=== PATIENT | female | born 1985 | race Caucasian/White ===

== ENCOUNTER 2021-06-03 09:16 | Inpatient (IN) ==
[2021-06-03] MEDS ORDERED: LACTATED RINGER'S 1,000 ML IV PRN ×2 (09:49→12:13)
--- NOTE | 2021-06-03 09:53 | History & Physical Report ---
Date of Service June 03, 2021 Assessment & Plan (1) Supervision of normal first : Plan: Sterile speculum exam was performed there is no pooling of fluid nitrazine is negative ferning is negative AmniSure is negative I attempted to examine the patient cervix but she could not tolerate the cervix is fairly posterior It does appear as though the patient is raghu although I cannot determine if she is actively laboring at the also not picking up contractions on the monitor. Certainly on the chance that is really labor we will observe her carefully at this time group B strep swab is sent Covid swab will be sent as well patient will need antibiotics as we will have the GBS back in time if she is an active labor Note after several hours the patient's pain and discomfort increase she was assessed by nursing at that stage she was an anterior lip see delivery note for the rest of the process we did order penicillin however she did not receive any by the time she delivered rapidly History of Present Illness Primary Care Provider: [facility] 36 and 5 called the on-call physician with leakage of fluid and contractions she describes her pain is coming intermittently and getting stronger and she describes leakage of fluid but no huge gush the leakage is ongoing. Patient's has been uncomplicated this is her first baby Allergies Allergy/AdvReac Type Severity Reaction Status Date / Time No Known Drug Allergies Allergy Unknown Verified 05/20/21 15:57 shellfish derived Allergy Anaphylaxis Verified 05/20/21 15:57 Home Medications Medication Instructions Recorded Confirmed Type prenat.vits,cedric,ljx-qelf-sfngt 1 tab PO DAILY 11/08/20 05/20/21 History acetaminophen [Tylenol] PO 01/10/21 05/20/21 History ondansetron HCl 4 mg tablet 4 mg PO Q8H PRN #10 tab 04/08/21 05/20/21 Rx (Zofran) Breast Pump #1 ea 05/05/21 05/20/21 Rx Patient History Medical History Headache History of chicken pox Migraine headache with aura Vision loss, right eye Surgical History H/O wisdom tooth extraction Family History Grandmother Breast cancer Father Hypertension Hypercholesterolemia Grandmother Lupus erythematosus Rheumatoid arthritis Grandfather Rheumatoid arthritis Mother Thyroid disease Denies family history of Ovarian cancer Colorectal cancer Social History Smoking Status: Former smoker Hx Alcohol Use: No Hx Substance Use: No Preferred Language: Pashto 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 Beliefs That Will Affect Care: None marital status: marital status details: Rober Esqueda (33) [phone] Current Living Situation: Spouse Current Living Situation Comment: lives with spouse, dog, cat-spouse changing litter current occupational status: employed 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
[2021-06-03] MEDS ORDERED: OXYTOCIN 30 UNITS/500 ML BAG IV PRN ×2 (12:13→14:04)
[2021-06-03] MEDS ORDERED: PENICILLIN G POTASSIUM 6 MU in DEXTROSE 5% 250 ML IV ONE (12:30)
[2021-06-03 12:34] LABS: Hematocrit (blood only) 37.1 % (37-47); Hemoglobin 13.2 g/dL (12.0-16.0); Mean Corpuscular Hemoglobin 31.7 pg (25-34); Mean Corpuscular Hgb Conc 35.6 g/dL (32-36); Mean Platelet Volume 10.3 fL (7.4-10.4); Platelet Count 229 K/uL (130-400); RDW Standard Deviation 42.2 fL (36.4-46.3); Red Blood Count 4.17 M/uL (4.2-5.4); White Blood Count 19.38 K/uL (4.8-10.8)
[2021-06-03] MEDS ORDERED: LIDOCAINE 1% LOCAL 20 ML VIAL ONE (12:54)
--- NOTE | 2021-06-03 13:29 | Delivery Summary ---
Vaginal Delivery Summary Date of Service June 03, 2021 Vaginal Delivery Summary Spontaneous vaginal delivery the patient arrived in labor and delivery and initially we had thought she was ruptured membranes but she was negative for all testing she was feeling pain but we could not roller picker contractions on the monitor and an initial attempt at cervix check was unable to determine cervical dilation as she would not tolerate the exam. Several hours later though she felt increased discomfort at that time it was found she was an anterior lip I did offer her epidural penicillin was ordered. Patient declined epidural and then pushed anterior occiput baby without difficulty. Suction of the nares and mouth born first clear fluid I had gently attempted to rupture membranes when the baby was 9 cm with a hook and no fluid was obtained. Once the baby's head was born mouth and then nares were suctioned there was no nuchal cord gentle traction on the baby no excessive force. Live vigorous male infant cord clamped and cut cord gases obtained cord blood obtained placenta removed with gentle traction IV Pitocin started patient had a second-degree tear we injected this with local anesthetic and repaired in the usual fashion at the end of the procedure sponge and instrument counts were correct estimated blood loss 250 mL
[2021-06-03 13:36] LABS: Base Excess Cord Arterial Bld -6.1 mEq/L (-9-1.8); CO2 Cord Arterial Blood 49 mmHg (39.1-73.5); HCO3 Cord Arterial Blood 21 mmol/L (19.7-28.5); PO2 Cord Arterial Blood 20 mmHg (4.1-31.7)
[2021-06-03 13:41] LABS: Base Excess Cord Venous Blood -6.4 mEq/L (-7.7-1.9); Cord Venous Blood HCO3 21 mmol/L (18.4-26.8); Cord Venous Blood PCO2 48 mmHg (30.4-57.2); Cord Venous Blood PO2 20 mmHg (14.1-43.3)
[2021-06-03 13:42] LABS: Cord Venous Blood pH 7.25 (7.20-7.44); O2 Saturation Cord Venous Bld < 60.0 % (<68); Oxygen Sat Cord Arterial Blood < 60.0 % (<60); pH Cord Arterial Blood 7.26 (7.1-7.38)
[2021-06-03] MEDS ORDERED: oxyCODONE/ACETAMINOPHEN 5mg/325mg TAB PO PRN (14:04)
[2021-06-03] MEDS ORDERED: ACETAMINOPHEN 325 MG TAB PO PRN (14:04)
[2021-06-03] MEDS ORDERED: bisacodyL 10 MG SUPP PR PRN (14:04)
[2021-06-03] MEDS ORDERED: BENZOCAINE 20% AER SPR 82.5 GM CAN EXT PRN (14:04)
[2021-06-03] MEDS ORDERED: HYDROCORTISONE ACETATE 25 MG SUPP PR PRN (14:04)
[2021-06-03] MEDS ORDERED: DIPHTHERIA/TETANUS/PERTUSSIS 0.5 ML SYR/VIAL IM ONE (14:04)
[2021-06-03] MEDS: IBUPROFEN 600 MG TAB PO PRN ×2 (14:28→20:16)
[2021-06-03] MEDS ORDERED: PENICILLIN G POTASSIUM 3 MU in DEXTROSE 5% 100 ML IV PRN (15:13)
[2021-06-03] MEDS: DOCUSATE SODIUM 100 MG CAP PO SCH (20:16)
[2021-06-04] MEDS: IBUPROFEN 600 MG TAB PO PRN ×4 (00:07→23:37)
[2021-06-04 07:16] LABS: Hematocrit (blood only) 29.8 % (37-47); Mean Corpuscular Hemoglobin 31.1 pg (25-34); Mean Corpuscular Hgb Conc 33.6 g/dL (32-36); Mean Corpuscular Volume 92.5 fL (80-100); Mean Platelet Volume 9.8 fL (7.4-10.4); Platelet Count 192 K/uL (130-400); RDW Coefficient of Variation 13.3 % (11.5-14.5); RDW Standard Deviation 45.3 fL (36.4-46.3); Red Blood Count 3.22 M/uL (4.2-5.4); White Blood Count 13.48 K/uL (4.8-10.8)
--- NOTE | 2021-06-04 08:59 | Obstetrical Progress Note ---
Date of Service June 04, 2021 Assessment & Plan (1) Encounter for care and examination after delivery: Plan: 35yo PPD 1 s/p at 36weeks 5days complicated with 2nd degree tear -Continue routine care -Vitals reviewed- HDS, afebrile -GBS unknown, tx briefly with penicillin prior to delivery; limited by time of delivery -Encourage ambulation, regular diet -Pain control with ibuprofen, acetaminophen PRN -Encourage -Hgb 10, stable -f/u in 6 weeks with OB after discharge; dc likely tomorrow given 1st baby Admission and Anticipated Discharge Date Admission Date: June 03, 2021 Supervising Physician Co-Signing Physician Notes Patient seen and evaluated and agree with the above findings and plan. Routine care Subjective Ambulation: yes Voiding: yes Passing Gas: yes BM: not yet Diet Tolerance: regular w/o N/V Lochia: moderate Feeding Type: breast Current Pain Level(1-10): 1 Review of Systems Review of Systems: Denies fevers/chills. Denies dyspnea, cough. Denies chest pain. +mild breast soreness Denies dysuria. Denies headache. Denies back pain. Physical Exam Physical Exam: General: Alert, oriented, no acute distress Cardiac: Regular rate and rhythm, normal S1, S2. No murmurs appreciated. Respiratory: Clear to auscultation b/l with good air flow entry, symmetric chest rise and fall. No wheezes or crackles. No increased work of breathing or accessory muscle use Abdomen: Soft, nontender, nondistended. Fundus firm and palpable at umbilicus. No guarding or rebound. Skin: No rashes or lesions Extremities: Warm, dry, well-perfused. No lower extremity edema, erythema or swelling. No calf tenderness. Results & Data ([facility]) Vital Signs (Past 12 Hours) Vital Signs Temp Pulse Resp BP 06/04/21 03:50 36.6 C 68 18 102/66 06/03/21 23:50 36.4 C L 71 18 111/69 Resident Activity Tracking Resident Involvement: Resident Care Provided Care Provided: OB Delivery
[2021-06-04] MEDS: DOCUSATE SODIUM 100 MG CAP PO SCH ×2 (10:14→20:11)
[2021-06-04] MEDS: PRENATAL VITAMIN 1 TAB PO SCH (10:14)
[2021-06-04] MEDS ORDERED: bisacodyL 5 MG TABEC PO SCH (20:00)
[2021-06-05] MEDS: IBUPROFEN 600 MG TAB PO PRN ×2 (04:06→08:02)
[2021-06-05 06:27] LABS: Hematocrit (blood only) 27.4 % (37-47); Hemoglobin 9.3 g/dL (12.0-16.0)
--- NOTE | 2021-06-05 07:36 | Obstetrical Progress Note ---
Date of Service June 05, 2021 Assessment & Plan (1) Encounter for care and examination after delivery: no ext pain. Likely plan d/c later today Subjective Ambulation: ambulating normally Voiding: no voiding problems Diet Tolerance:: regular diet Lochia:: Moderate Feeding Type:: breast feeding Current Pain Level(1-10): 1 Results & Data ([facility]) Vital Signs (Past 12 Hours) Vital Signs Temp Pulse Resp BP 06/05/21 00:35 98.1 F 69 18 106/68
[2021-06-05] MEDS: DOCUSATE SODIUM 100 MG CAP PO SCH (08:02)
[2021-06-05] MEDS: PRENATAL VITAMIN 1 TAB PO SCH (08:02)
== END 2021-06-05 17:10 | disposition home or self-care (01) | DRG 807 ==
LOC: OPB 09:16 → 4S1 09:17 → 4S2 17:15

== ENCOUNTER 2021-06-22 04:40 | Observation (INO) ==
--- NOTE | 2021-06-22 04:57 | Emergency Department Note ---
History of Present Illness General Chief complaint: Vaginal Bleeding Stated complaint: POSTPARDUM BLEEDING AND BLOOD CLOTS; DIZZINESS Time Seen by Provider: 06/22/21 04:51 History of Present Illness Maximum Pain Intensity: 2 35-year-old female presents emergency department with vaginal bleeding post spontaneous vaginal delivery on June 03. Patient was seen by me approximately 5 hours prior to presentation at the time she had passed 2 clots, after discussion with the CANDY COOK[employer] HELPER Dr. Wilcox it was decided that we would try Methergine as she was stable. Patient was given a dose of Methergine she returns now stating increased blood clots and lightheaded dizziness and feeling weak. Patient denies specific abdominal pain does state some abdominal cramping however but states that she is passing a large amount of clots in comparison to prior presentation Home Medications Medication Instructions Recorded Confirmed Type Breast Pump #1 ea 05/05/21 06/20/21 Rx prenat.vits,cedric,yna-xgis-lyfvp 1 tab PO DAILY 06/03/21 06/21/21 History acetaminophen 500 mg tablet 1,000 mg PO DIRECTED PRN 06/21/21 06/21/21 H istory (Tylenol Extra Strength) methylergonovine 0.2 mg tablet 0.2 mg PO QID 2 Days #8 tab 06/21/21 Rx (Methergine) Allergies Allergy/AdvReac Type Severity Reaction Status Date / Time shellfish derived Allergy Severe Anaphylaxis Verified 06/21/21 23:36 Past Med/Surg History Medical History Headache History of chicken pox Migraine headache with aura Vision loss, right eye Surgical History H/O wisdom tooth extraction Family History Grandmother Breast cancer Father Hypertension Hypercholesterolemia Grandmother Lupus erythematosus Rheumatoid arthritis Grandfather Rheumatoid arthritis Mother Thyroid disease Denies family history of Ovarian cancer Colorectal cancer Social History Smoking Status: Never smoker Hx Alcohol Use: No Hx Substance Use: No Preferred Language: Tamazight 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 Beliefs That Will Affect Care: None marital status: marital status details: Rober Esqueda (33) [phone] Current Living Situation: Spouse Current Living Situation Comment: lives with spouse, dog, cat-spouse changing litter current occupational status: employed 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 Feels Safe at Home: Yes Assistive Devices: Glasses Review of Systems A total of 10 systems reviewed and were otherwise negative Gastrointestinal: no vomiting Genitourinary (Female): + abnormal vaginal bleeding Physical Exam Vital Signs Vital Signs - 24 hr 06/22/21 04:42 06/22/21 05:00 06/22/21 05:07 Temperature 36.5 C Temperature Source Temporal Artery Scan Pulse Rate 92 H 82 100 H Pulse Rate from SpO2 Sensor 83 99 H Respiratory Rate 18 18 12 Blood Pressure 101/67 111/59 L Blood Pressure Mean 78 76 Pulse Oximetry 94 99 100 Sepsis Recent Fever Within 48 Hours No Sepsis New/Unexplained Change in Mental Status No Sepsis Action Taken by Nursing No Action Required 06/22/21 05:10 06/22/21 05:15 06/22/21 05:20 Temperature Temperature Source Pulse Rate 87 94 H 89 Pulse Rate from SpO2 Sensor 85 Respiratory Rate 10 L 20 17 Blood Pressure 100/63 Blood Pressure Mean 75 Pulse Oximetry 100 Sepsis Recent Fever Within 48 Hours Sepsis New/Unexplained Change in Mental Status Sepsis Action Taken by Nursing 06/22/21 05:30 06/22/21 05:40 06/22/21 05:50 Temperature Temperature Source Pulse Rate 97 H 89 89 Pulse Rate from SpO2 Sensor 91 H Respiratory Rate 15 14 14 Blood Pressure 104/59 L Blood Pressure Mean 74 Pulse Oximetry 98 Sepsis Recent Fever Within 48 Hours Sepsis New/Unexplained Change in Mental Status Sepsis Action Taken by Nursing 06/22/21 06:00 Temperature Temperature Source Pulse Rate 92 H Pulse Rate from SpO2 Sensor 90 Respiratory Rate 13 Blood Pressure 104/68 Blood Pressure Mean 80 Pulse Oximetry 99 Sepsis Recent Fever Within 48 Hours Sepsis New/Unexplained Change in Mental Status Sepsis Action Taken by Nursing VITAL SIGNS - Vital signs and nursing notes were reviewed. GENERAL -35-year-old female appears pale. Communicates well with provider and answers questions appropriately. SKIN - Without rashes. HEAD - NC/AT. EYES - PERRL with EOMI bilaterally. Sclera anicteric. Palpebral conjunctiva pink and moist with no injection noted. EARS - No deformities of external structures noted on gross examination bilaterally. No pain elicited with palpation of the tragus bilaterally. External auditory canals without discharge or otorrhea. Tympanic membranes pearly burns without retraction or bulging. No fluid or purulent material visualized behind the TM. Handle of malleus, umbo, cone of light, pars tensa/flaccid all easily visualized. NOSE - Midline and without cyanosis. No epistaxis or purulent drainage noted. Septum midline without deviation or septal hematoma noted. MOUTH/OROPHARYNX - Without perioral cyanosis. NECK - Neck with FROM. Supple to palpation. LUNGS - Chest wall symmetric without accessory muscle use, intercostals retractions, or central cyanosis. Normal vesicular breath sounds CTA B/L. No wheezes, rales, or rhonchi appreciated. CARDIAC - RRR with S1/S2. No murmur, rubs, or gallops appreciated. ABDOMEN - Abdominal contour soft without pulsations or visible masses. BS normoactive all four quadrants. No tenderness, palpable masses, h epatosplenomegaly, or ascites noted. vaginal exam with carton maker present the vaginal vault is full of clot;I have evacuated as much clot as possible with Yankauer suction as well as Q-tips and the patient continues to have clot coming from the cervical os which appears now on digital exam to be open. EXTREMITIES - No clubbing or peripheral cyanosis. No pretibial edema present. . +5/5 strength noted in UE/LE bilaterally. NEUROLOGIC - Cranial nerves II through XII grossly intact. PSYCH - A&Ox3 and cooperates fully with examiner. Pt is very pleasant and interacts well with examiner. Course Reevaluation(s) Reevaluation #1: started on ivf; sister superior at bedside at 515am; bp >100 hr 90; plan to go to OR Consultations Consultation #1: Spoke with Dr Martinez- litzy eval patient at bedside for possible D+C at 510am Administered Medications Doxycycline Hyclate 200 mg/ (Dextrose) 120 mls @ 50 mls/hr IV NOW STA Stop: 06/22/21 07:51 Last Admin: 06/22/21 05:48 Dose: 50 mls/hr Documented by: [id number] Discontinued Medications Sodium Chloride (Nss 1000ml) 1,000 mls @ 999 mls/hr IV .Q1H1M OLGA Stop: 06/22/21 06:00 Last Infusion: 06/22/21 05:54 Dose: 0 mls/hr Documented by: [id number] Admin: 06/22/21 05:19 Dose: 999 mls/hr Documented by: [id number] Medical Decision Making Medical Records Attestation: I reviewed the patient's medical records. Laboratory Data Attestation: I reviewed the patient's lab results. Result diagrams: 06/22/21 05:00 06/22/21 05:00 Lab Results 06/22/21 06/22/21 06/22/21 Range/Units 05:00 05:00 05:07 WBC 7.49 (4.8-10.8) K/uL RBC 2.74 L (4.2-5.4) M/uL Hgb 8.5 L (12.0-16.0) g/dL Hct 24.9 L (37-47) % MCV 90.9 (80-100) fL MCH 31.0 (25-34) pg MCHC 34.1 (32-36) g/dL RDW Std Deviation 42.3 (36.4-46.3) fL RDW Coeff of Anthony 12.8 (11.5-14.5) % Plt Count 304 (130-400) K/uL MPV 8.6 (7.4-10.4) fL Immature Gran % (Auto) 0.3 % Neut % (Auto) 69.9 % Lymph % (Auto) 22.6 % Mccreary % (Auto) 5.9 % Eos % (Auto) 1.2 % Baso % (Auto) 0.1 % Neut # (Auto) 5.24 (1.4-6.5) K/uL Lymph # (Auto) 1.69 (1.2-3.4) K/uL Mccreary # (Auto) 0.44 (0.11-0.59) K/uL Eos # (Auto) 0.09 (0-0.5) K/uL Baso # (Auto) 0.01 (0-0.2) K/uL Immature Gran # (Auto) 0.02 (0.00-0.02) K/uL Sodium 132 L (136-145) mmol/L Potassium 3.6 (3.5-5.1) mmol/L Chloride 100 (98-107) mmol/L Carbon Dioxide 25 (21-32) mmol/L Anion Gap 7 (3-11) BUN 8 (6-23) mg/dl Creatinine 0.48 L (0.6-1.2) mg/dl Est Cr Clr Drug Dosing Not Reportable Est GFR ( Amer) 148.3 ml/min Est GFR (Non-Af Amer) 128.0 ml/min BUN/Creatinine Ratio 16.7 (10-20) Glucose 108 H (70-99(Fasting)) mg/dl Calcium 8.9 (8.5-10.1) mg/dl Total Bilirubin 0.2 (0.2-1.0) mg/dl AST 16 (13-39) U/L ALT 24 (7-52) U/L Alkaline Phosphatase 54 (34-104) U/L Total Protein 6.2 (6.0-8.3) gm/dl Albumin 3.4 (3.4-5.0) gm/dl Globulin 2.8 (2.5-4.0) gm/dl Albumin/Globulin Ratio 1.2 (0.9-2) Blood Type A Positive Antibody Screen NEGATIVE MDM Narrative Decision making differential diagnosis dysfunctional uterine bleeding, retained products of conception, uterine atony Impression & Plan Vaginal bleeding Discharge Plan Visit Data Chief Complaint: Vaginal Bleeding Stated Complaint: POSTPARDUM BLEEDING AND BLOOD CLOTS; DIZZINESS ED Provider: Jorge Arroyo Discharge Problem: Vaginal bleeding Patient Disposition: Being Evaluated by Surgeon Forms Stand Alone Forms: [employer] Prescriptions Prescriptions: No Action (DME) Breast Pump See Rx Instructions .ROUTE .MEDSUPPLY Qty: 1 RF: 0 prenat.vits,cedric,wtu-wnjq-qkpyt Tablet 1 tab PO DAILY RF: 0 acetaminophen [Tylenol Extra Strength] 500 mg Tablet 1,000 mg PO DIRECTED PRN (Reason: Pain) RF: 0 methylergonovine [Methergine] 0.2 mg tablet 0.2 mg PO QID 2 Days Qty: 8 RF: 0 Referrals [facility]: [facility] [Primary Care Provider] -
[2021-06-22] MEDS ORDERED: SODIUM CHLORIDE 0.9% 1000ML 1,000 ML IV SCH (05:00)
[2021-06-22 05:10] LABS: Basophils # (auto) 0.01 K/uL (0-0.2); Basophils % (auto) 0.1 %; Eosinophils # (auto) 0.09 K/uL (0-0.5); Eosinophils % (auto) 1.2 %; Hematocrit (blood only) 24.9 % (37-47); Hemoglobin 8.5 g/dL (12.0-16.0); Immature Granulocytes # (auto) 0.02 K/uL (0.00-0.02); Immature Granulocytes % (auto) 0.3 %; Lymphocytes # (auto) 1.69 K/uL (1.2-3.4); Lymphocytes % (auto) 22.6 %; Mean Corpuscular Hgb Conc 34.1 g/dL (32-36); Mean Corpuscular Volume 90.9 fL (80-100); Mean Platelet Volume 8.6 fL (7.4-10.4); Monocytes # (auto) 0.44 K/uL (0.11-0.59); Monocytes % (auto) 5.9 %; Neutrophils # (auto) 5.24 K/uL (1.4-6.5); Neutrophils % (auto) 69.9 %; Platelet Count 304 K/uL (130-400); RDW Coefficient of Variation 12.8 % (11.5-14.5); RDW Standard Deviation 42.3 fL (36.4-46.3); Red Blood Count 2.74 M/uL (4.2-5.4); White Blood Count 7.49 K/uL (4.8-10.8)
[2021-06-22] MEDS ORDERED: DOXYCYCLINE HYCLATE 200 MG in DEXTROSE 5% 100 ML IV STA (05:28)
[2021-06-22 05:34] LABS: Alanine Aminotransferase 24 U/L (7-52); Albumin Globulin Ratio 1.2 (0.9-2); Albumin Level 3.4 gm/dl (3.4-5.0); Alkaline Phosphatase 54 U/L (34-104); Anion Gap 7 (3-11); Aspartate Aminotransferase 16 U/L (13-39); BUN Creatinine Ratio 16.7 (10-20); Bilirubin,Total 0.2 mg/dl (0.2-1.0); Blood Urea Nitrogen 8 mg/dl (6-23); Calcium 8.9 mg/dl (8.5-10.1); Carbon Dioxide 25 mmol/L (21-32); Chloride 100 mmol/L (98-107); Est GFR (African American) 148.3 ml/min; Globulin 2.8 gm/dl (2.5-4.0); Glucose 108 mg/dl (70-99(Fasting)); Potassium 3.6 mmol/L (3.5-5.1); Sodium 132 mmol/L (136-145); Total Protein 6.2 gm/dl (6.0-8.3)
--- NOTE | 2021-06-22 05:48 | History & Physical Report ---
Date of Service June 22, 2021 Assessment & Plan (1) Delayed hemorrhage: Plan: Jennifer Douglas is a 35-year-old approximately 2.5 weeks status post a normal spontaneous vaginal delivery that was uncomplicated. Patient has increased bleeding as noted per HPI. Bleeding is noted be significant in the emergency department today with a moderate decrease in H/H since discharge. I discussed in light of the persistence of the bleeding recommended that we proceed with a dilation evacuation of the uterus. Patient does not have any symptoms of endometritis. Bleeding is likely due to retained products versus sub involution of the placental site. Discussed a dilation evacuation of the uterus. Risks of the procedure were specifically discussed. Questions answered patient's satisfaction. Consents reviewed and signed patient's medical history was reviewed as part of preoperative visit. Type and screen and COVID test pending (2) Retained products of conception: (3) Preoperative exam for gynecologic surgery: History of Present Illness Primary Care Provider: [facility] Luis is a 35-year-old is approximately 2 and half weeks status post a normal spontaneous vaginal delivery which was noted to be uncomplicated. Patient noted over the past several days she has had increased bleeding with passage of clots. Patient reports that overnight bleeding had progressively increased. She reports increasing size of clot passage with varying degrees of bleeding between passage of clots. Patient reports that she passed a fist-sized clot which brought her back to the emergency department. In addition she reports occasional lightheadedness/dizziness. Denies any distinct shortness of breath. Evaluation by the emergency department physician noted significant clots with persistent bleeding from the cervix. H&H was noted at 8.5/24.9. type and screen and COVID test pending. Allergies Allergy/AdvReac Type Severity Reaction Status Date / Time shellfish derived Allergy Severe Anaphylaxis Verified 06/21/21 23:36 Home Medications Medication Instructions Recorded Confirmed Type Breast Pump #1 ea 05/05/21 06/20/21 Rx prenat.vits,cedric,vfa-wcqw-aghkq 1 tab PO DAILY 06/03/21 06/21/21 History acetaminophen 500 mg tablet 1,000 mg PO DIRECTED PRN 06/21/21 06/21/21 History (Tylenol Extra Strength) methylergonovine 0.2 mg tablet 0.2 mg PO QID 2 Days #8 tab 06/21/21 Rx (Methergine) Patient History Medical History Headache History of chicken pox Migraine headache with aura Vision loss, right eye Surgical History H/O wisdom tooth extraction Family History Grandmother Breast cancer Father Hypertension Hypercholesterolemia Grandmother Lupus erythematosus Rheumatoid arthritis Grandfather Rheumatoid arthritis Mother Thyroid disease Denies family history of Ovarian cancer Colorectal cancer Social History Smoking Status: Never smoker Hx Alcohol Use: No Hx Substance Use: No Preferred Language: Lebanese 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 Beliefs That Will Affect Care: None marital status: marital status details: Rober Esqueda (33) [phone] Current Living Situation: Spouse Current Living Situation Comment: lives with spouse, dog, cat-spouse changing litter current occupational status: employed 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 Feels Safe at Home: Yes Assistive Devices: Glasses Physical Exam Physical Exam: portions of exam per ED physician Constitutional: WD/WN, vitals as above well developed, well nourished and + well hydrated; no acute distress Neck: trachea midline, no thyromegaly Respiratory: normal respiratory effort, lungs clear to auscultation no respiratory distress, no labored breathing and no cough Cardiovascular: RRR, no murmur, no edema Heart Sounds: normal S1 and normal S2 Gastrointestinal (Abdomen): normal bowel sounds, soft, nontender, no hepatosplenomegaly Inspection/Auscultation: abdomen not distended and no abdominal edema Neurologic: PERRL, EOMI, accommodation nl, no face palsy, no dysarthria normal touch/pain/proprioception Psychiatric: A+Ox3, euthymic affect Apperance: appropriately dressed and appropriately groomed Genitourinary: no vaginal lesions, no adnexal mass normal external appearance and normal appearance of the urethra; no external lesions, no external swelling, no external erythema and no external laceration Speculum/Bimanual Exam: + vaginal bleeding ( Significant); uterus nontender passage of large clots with continued bleeding noted on speculum exam by ED physician Lymphatic: no cervical or axillary lymphadenopathy Results & Data ([facility]) Vital Signs (Past 12 Hours) Vital Signs Temp Pulse Resp BP Pulse Ox 06/22/21 05:30 97 H 15 104/59 L 06/22/21 05:20 89 17 06/22/21 05:15 94 H 20 100/63 06/22/21 05:10 87 10 L 100 06/22/21 05:07 100 H 12 111/59 L 100 06/22/21 05:00 82 18 99 06/22/21 04:42 36.5 C 92 H 18 101/67 94 Coding Level of Care Code 37979 Office/Outpt Visit, Est Diagnoses Delayed hemorrhage O72.2 Retained products of conception Preoperative exam for gynecologic surgery Z01.818
[2021-06-22] MEDS ORDERED: MIDAZOLAM HCL 1 MG/ML 2ML VIAL ONE (08:07)
[2021-06-22] MEDS ORDERED: fentaNYL citrate 100 MCG/2 ML VIAL ONE (08:08)
[2021-06-22] MEDS ORDERED: PROPOFOL IV EMULSION 10 MG/ML 20 ML VIAL IV ONE (08:13)
[2021-06-22] MEDS ORDERED: LIDOCAINE 2% 2 ML VIAL/AMP(20MG/ML) INFIL ONE (08:13)
[2021-06-22] MEDS ORDERED: DEXAMETHASONE SOD INJ 4 MG/ML VIAL ONE (08:13)
[2021-06-22] MEDS ORDERED: ONDANSETRON INJ 2 MG/ML 2 ML VIAL ONE (08:13)
--- NOTE | 2021-06-22 08:19 | Anesthesiology Consultation ---
Date of Service June 22, 2021 Assessment & Plan (1) Encounter for pre-operative examination: Chart Review Chart Review: Acceptable Risk for Surgery and Patient NOT seen in Pre Admission Testing Consults Requested none History Surgery Operation Date: 06/22/21 07:15 Proposed Procedures p Dilation and Evacuation - Angel Martinez MD Allergies Allergy/AdvReac Type Severity Reaction Status Date / Time shellfish derived Allergy Severe Anaphylaxis Verified 06/21/21 23:36 Medications Home Medications Medication Instructions Recorded Confirmed Last Taken Breast Pump #1 ea 05/05/21 06/22/21 Unknown prenat.vits,cedric,taf-ufkj-ytnuw 1 tab PO DAILY 06/03/21 06/22/21 06/21/21 acetaminophen 500 mg tablet 1,000 mg PO DIRECTED PRN 06/21/21 06/22/21 Unknown (Tylenol Extra Strength) methylergonovine 0.2 mg tablet 0.2 mg PO QID 2 Days #8 tab 06/21/21 06/22/21 06/21/21 00:00 (Methergine) NPO Date Last Intake of Fluids: 06/22/21 Time Last Intake of Fluids: 03:00 Last Intake of Fluids Comment: water Date Last Intake of Solids: 06/21/21 Time Last Intake of Solids: 20:00 Past Medical History Medical History Headache History of chicken pox Migraine headache with aura Vision loss, right eye Past Family History Family History Grandmother Breast cancer Father Hypertension Hypercholesterolemia Grandmother Lupus erythematosus Rheumatoid arthritis Grandfather Rheumatoid arthritis Mother Thyroid disease Denies family history of Ovarian cancer Colorectal cancer Past Surgical History Surgical History H/O wisdom tooth extraction Social History Smoking Status: Never smoker Hx Alcohol Use: No Hx Substance Use: No substance use type: does not use Physical Exam Vital Signs Last Vital Signs Temp 37.0 C 06/22/21 08:03 Pulse 87 06/22/21 08:03 Resp 18 06/22/21 08:03 BP 110/59 L 06/22/21 08:03 Pulse Ox 98 06/22/21 08:03 Testing Laboratory Results 06/22/21 05:00 06/22/21 05:00 Blood Type A Positive 06/22/21 05:07 Antibody Screen NEGATIVE 06/22/21 05:07
[2021-06-22] MEDS ORDERED: LABETALOL HCL IV 5 MG/ML 20ML IV PRN (08:26)
[2021-06-22] MEDS ORDERED: fentaNYL citrate 100 MCG/2 ML VIAL IV PRN (08:26)
[2021-06-22] MEDS ORDERED: ATROPINE SULFATE 0.1 MG/ML 10ML SYR IV PRN (08:26)
[2021-06-22] MEDS ORDERED: HYDROmorphone INJ 1 MG/ML SYRINGE IV PRN (08:26)
[2021-06-22] MEDS ORDERED: ePHEDrine sulfate 50 MG/ML AMP IV PRN (08:26)
[2021-06-22] MEDS ORDERED: ONDANSETRON INJ 2 MG/ML 2 ML VIAL IV PRN ×2 (08:26→09:09)
[2021-06-22] MEDS ORDERED: MEPERIDINE HCL 25 MG/ML CARP/VIAL IV PRN (08:26)
[2021-06-22] MEDS ORDERED: PHENYLEPHRINE 100MCG/ML 5ML SYR IV PRN (08:26)
[2021-06-22] MEDS ORDERED: miSOPROStoL 200 MCG TAB ONE (08:29)
[2021-06-22] MEDS ORDERED: SODIUM CHLORIDE 0.9% 250 ML IV PRN (08:50)
[2021-06-22] MEDS ORDERED: KETOROLAC 30 MG/ML VIAL IV PRN (09:09)
[2021-06-22] MEDS ORDERED: IBUPROFEN 600 MG TAB PO PRN (09:09)
[2021-06-22] MEDS ORDERED: ACETAMINOPHEN 325 MG TAB PO PRN (09:09)
--- NOTE | 2021-06-22 09:15 | Post Operative Brief Note ---
PG Immediate Post Op with CF Date of Surgery June 22, 2021 Pre & Post Diagnosis Operation Date: 06/22/21 07:15 Pre-Op Diagnosis: delayed hemmorhage retained products of conception Post-Op Diagnosis: delayed hemmorhage retained products of conception I identified the patient and participated in the time-out.: Yes Procedure Operation Date: 06/22/21 07:15 Actual Procedures p Dilation and Evacuation(Not Applicable) - Angel Martinez MD Surgeon Angel Martinez MD Gang Miner None Estimated Blood Loss 100 Findings Consistent with Post-Op Diagnosis Specimens Specimen Description: A. 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
--- NOTE | 2021-06-22 10:13 | Anesthesiology Progress Note ---
Date of Service June 22, 2021 Anesthesia Post Procedure Vital Signs Vital Signs: Temp Pulse Pulse Pulse Resp BP BP 06/22/21 10:00 85 12 106/58 L 06/22/21 09:50 36.6 C 82 12 96/53 L 06/22/21 09:40 84 13 105/54 L 06/22/21 09:30 84 14 106/54 L 06/22/21 09:21 36.4 C L 88 12 116/57 L 06/22/21 08:30 84 18 96/54 L 06/22/21 08:25 81 14 95/53 L 06/22/21 08:19 83 18 101/60 06/22/21 08:16 98/50 L 06/22/21 08:03 37.0 C 87 18 110/59 L 06/22/21 07:15 92 H 18 103/58 L 06/22/21 06:40 94 H 13 06/22/21 06:34 92 H 9 L 110/61 06/22/21 06:30 90 12 110/57 L 06/22/21 06:20 99 H 14 06/22/21 06:10 88 12 06/22/21 06:00 92 H 13 104/68 06/22/21 05:50 89 14 06/22/21 05:40 89 14 06/22/21 05:30 97 H 15 104/59 L 06/22/21 05:20 89 17 06/22/21 05:15 94 H 20 100/63 06/22/21 05:10 87 10 L 06/22/21 05:07 100 H 12 111/59 L 06/22/21 05:00 82 18 06/22/21 04:42 36.5 C 92 H 18 101/67 Pulse Ox 06/22/21 10:00 100 06/22/21 09:50 100 06/22/21 09:40 100 06/22/21 09:30 100 06/22/21 09:21 100 06/22/21 08:30 100 06/22/21 08:25 100 06/22/21 08:19 100 06/22/21 08:16 06/22/21 08:03 98 06/22/21 07:15 98 06/22/21 06:40 98 06/22/21 06:34 99 06/22/21 06:30 99 06/22/21 06:20 98 06/22/21 06:10 99 06/22/21 06:00 99 06/22/21 05:50 98 06/22/21 05:40 06/22/21 05:30 06/22/21 05:20 06/22/21 05:15 06/22/21 05:10 100 06/22/21 05:07 100 06/22/21 05:00 99 06/22/21 04:42 94 Transfer of Care Handoff Completed per policy Notes Mental Status: alert / awake / arousable Patient Amnestic to Procedure: Yes Nausea / Vomiting: adequately controlled Pain: adequately controlled Airway Patency, RR, SpO2: stable & adequate BP & HR: stable & adequate Hydration State: stable & adequate Anesthetic Complications: no major complications apparent and Pt Satisfied with anesthetic care Notes: The patient is awake and comfortable. Her vital signs are stable. Her hgb drawn just prior to the OR came back at 6.4 so she was transfused one unit of PRBC and is currently receiving a second unit. Dr. Martinez is aware of the PRBC transfusions and will follow the patient on the floor.
[2021-06-22 14:19] LABS: Hematocrit (blood only) 28.7 % (37-47); Hemoglobin 9.8 g/dL (12.0-16.0)
--- NOTE | 2021-06-22 17:14 | Gynecologic Progress Note ---
Date of Service June 22, 2021 Assessment & Plan (1) Retained products of conception: (2) Delayed hemorrhage: Plan: At this point, patient is not ready for d/c. Unless something radically changes, plan on monitoring overnight and then d/c in the am. Vitals are stable , no significant bleeding. Admission and Anticipated Discharge Date Admission Date: June 22, 2021 Subjective Patient is very tired and not moving well. She was able to sit in a chair but very briefly and tires very easily. She was able to get up to the BR and void without significant lightheaded or dizziness. Has tolerated some clears but has really not eaten anything. Minimal bleeding. Physical Exam Constitutional: WD/WN, vitals as above Psychiatric: A+Ox3, euthymic affect Results & Data ([facility]) Vital Signs (Past 12 Hours) Vital Signs Temp Pulse Pulse Pulse Pulse Pulse Resp 06/22/21 13:30 36.7 C 89 18 06/22/21 12:30 36.7 C 88 18 06/22/21 12:00 37.2 C 86 18 06/22/21 11:30 36.9 C 92 H 20 06/22/21 11:00 36.6 C 87 14 06/22/21 10:45 85 12 06/22/21 10:30 36.6 C 87 13 06/22/21 10:15 36.6 C 83 12 06/22/21 10:10 83 12 06/22/21 10:00 85 12 06/22/21 09:50 36.6 C 82 12 06/22/21 09:40 84 13 06/22/21 09:30 84 14 06/22/21 09:21 36.4 C L 88 12 06/22/21 08:30 84 18 06/22/21 08:25 81 14 06/22/21 08:19 83 18 06/22/21 08:16 06/22/21 08:03 37.0 C 87 18 06/22/21 07:15 92 H 18 06/22/21 06:40 94 H 13 06/22/21 06:34 92 H 9 L 06/22/21 06:30 90 12 06/22/21 06:20 99 H 14 06/22/21 06:10 88 12 06/22/21 06:00 92 H 13 06/22/21 05:50 89 14 06/22/21 05:40 89 14 06/22/21 05:30 97 H 15 06/22/21 05:20 89 17 06/22/21 05:15 94 H 20 BP BP BP Pulse Ox 06/22/21 13:30 91/59 L 97 06/22/21 12:30 95/61 L 98 06/22/21 12:00 93/59 L 96 06/22/21 11:30 97/62 L 96 06/22/21 11:00 96/52 L 96 06/22/21 10:45 95/50 L 95 06/22/21 10:30 100/55 L 97 06/22/21 10:15 101/54 L 96 06/22/21 10:10 102/55 L 97 06/22/21 10:00 106/58 L 100 06/22/21 09:50 96/53 L 100 06/22/21 09:40 105/54 L 100 06/22/21 09:30 106/54 L 100 06/22/21 09:21 116/57 L 100 06/22/21 08:30 96/54 L 100 06/22/21 08:25 95/53 L 100 06/22/21 08:19 101/60 100 06/22/21 08:16 98/50 L 06/22/21 08:03 110/59 L 98 06/22/21 07:15 103/58 L 98 06/22/21 06:40 98 06/22/21 06:34 110/61 99 06/22/21 06:30 110/57 L 99 06/22/21 06:20 98 06/22/21 06:10 99 06/22/21 06:00 104/68 99 06/22/21 05:50 98 06/22/21 05:40 06/22/21 05:30 104/59 L 06/22/21 05:20 06/22/21 05:15 100/63 PG Care Time/CCT Total # of Minutes Spent Total Time Spent with Patient: Total time spent is greater than 50% in coordination of care (as documented) at patient's floor/unit and/or counseling patient: Coding Level of Care Code None Diagnoses Retained products of conception Delayed hemorrhage O72.2
[2021-06-23 06:16] LABS: Mean Corpuscular Hemoglobin 30.3 pg (25-34); Mean Corpuscular Hgb Conc 33.3 g/dL (32-36); Mean Corpuscular Volume 90.9 fL (80-100); Platelet Count 224 K/uL (130-400); RDW Coefficient of Variation 14.2 % (11.5-14.5); RDW Standard Deviation 46.7 fL (36.4-46.3); Red Blood Count 2.64 M/uL (4.2-5.4); White Blood Count 8.34 K/uL (4.8-10.8)
--- NOTE | 2021-06-23 06:44 | Gynecologic Progress Note ---
Date of Service June 23, 2021 Assessment & Plan (1) Retained products of conception: (2) Delayed hemorrhage: Plan: Doing much better this am. hbg equilibrated to 8, expected. minimal bleeding. Plan d/c home today. INstructions reviewed. f/u one week per Dr. Martinez. Admission and Anticipated Discharge Date Admission Date: June 22, 2021 Subjective Patient got some rest. feeling better. Has ambulated to the BR without symptoms. Notes minimal bleeding. Physical Exam Constitutional: WD/WN, vitals as above Respiratory: normal respiratory effort, lungs clear to auscultation Cardiovascular: RRR, no murmur, no edema Gastrointestinal (Abdomen): soft, nt, nd Skin: no rashes, warm and dry Psychiatric: A+Ox3, euthymic affect Results & Data ([facility]) Vital Signs (Past 12 Hours) Vital Signs Temp Pulse Resp BP Pulse Ox 06/23/21 04:05 36.9 C 78 16 96/58 L 99 06/22/21 23:25 37.0 C 74 16 91/56 L 98 06/22/21 19:50 37.1 C 84 20 96/62 L 97 PG Care Time/CCT Total # of Minutes Spent Total Time Spent with Patient: Total time spent is greater than 50% in coordination of care (as documented) at patient's floor/unit and/or counseling patient: Coding Level of Care Code D/C DAY MANAGEMENT <30 MINS Diagnoses Retained products of conception Delayed hemorrhage O72.2
--- NOTE | 2021-06-27 13:43 | Operative Report (OR) ---
DATE OF SERVICE: 06/22/2021 PROCEDURE: Dilation and evacuation of the uterus. PREOPERATIVE DIAGNOSES: 1. Acute delayed hemorrhage. 2. Suspected retained products of conception. POSTOPERATIVE DIAGNOSES: 1. Acute delayed hemorrhage. 2. Suspected retained products of conception. 3. Status post procedure. ESTIMATED BLOOD LOSS: 100 mL for procedure. SURGEON: Angel Martinez MD. FINDINGS: There was noted to be moderate tissue-like products obtained during evacuation. INDICATIONS: Luis is a 35-year-old who presents with a delayed hemorrhage. The patient requiring transfusion just prior to the dilation and evacuation. Suspected retained products of santana ption versus subinvolution of the placental site noted. DESCRIPTION OF PROCEDURE: The patient was taken to the operating room after consents were ensured. Upon presentation, she was properly identified, LMA anesthesia was obtained without difficulty. The patient was then prepped and draped in normal sterile fashion. Preprocedural timeout was performed, after which a speculum was placed in the vagina. Cervix was visualized and a single-tooth tenaculum placed in the superior aspect of cervix. Cervix was noted to be at least 1 cm dilated and no further dilation was done. A 14 cannula was introduced through the cervix into the uterus and initial produ ctive pass was performed with moderate tissue obtained; two negative passes were noted to follow. A gentle curettage with the banjo curette was then performed, after which additional 2 negative passes with suction curette were obtained. The uterine massage was notable for a roughly 10-12 week size fir m uterus. No significant bleeding noted and decision was made to end the case at that time. The ten aculum was removed. There was noted to be a small cervical laceration, which was repaired with 0 Jorge ryl in a continuous running locked stitch. Needle, sponge, and instrument counts were correct at the completion of the case. The patient was awoken from anesthesia and taken to recovery in stable cond ition. The patient will be admitted for observation. Job ID: [id number]
--- NOTE | 2021-06-27 16:30 | Discharge Summary (DS) ---
DATE OF ADMISSION: 06/22/2021 DATE OF DISCHARGE: 06/23/2021 HOSPITAL COURSE: The patient was admitted through the Emergency Department following a dilation and evacuation of the uterus for delayed hemorrhage and suspected retained products of concept ion. The patient received 2 units of packed red blood cells due to acute anemia from the heavy bleed ing. The dilation and evacuation procedure was performed without complication. The patient remained in-house for approximately 24 hours, at which time, bleeding was noted to be minimal and the patient was noted to have a hemoglobin and hematocrit at a stable level and was meeting criteria for dischar ge. The patient was discharged home in stable condition with postoperative and recommenda tions reviewed, questions answered to the patient's satisfaction and will have a planned followup in 1-2 weeks. Job ID: [id number]
== END 2021-06-23 10:20 | disposition home or self-care (01) ==
LOC: ED 04:40 → OR 08:00 → 4N 08:00 → PACUINP 08:00 → 4N 11:38 → 4S2 14:56